=== PATIENT | male | born 1940 | race Caucasian/White ===

== ENCOUNTER 2017-08-04 13:30 | Emergency (ER) | payer MEDICARE, BC ==
[2017-08-04] MEDS ORDERED: Metoprolol Succinate 25 MG Tab.ER PO ONE (13:54)
--- NOTE | 2017-08-04 13:55 | EDM.PDOC ---
ED HPI GENERAL MEDICAL PROBLEM - General Chief Complaint: Cardiovascular Problem Stated Complaint: BLOOD PRESSURE?? Time Seen by Provider: 08/04/17 13:49 Source of Information: Reports: Patient History Limitations: Reports: No Limitations - History of Present Illness INITIAL COMMENTS - FREE TEXT/NARRATIVE: PT STATES HE FEELS LIKE HEART IS RACING. RECENTLY DISCONTINUED METOPROLOL DUE TO HR IN 40'S. CONTINUES ON LISINOPRIL AND HCTZ. DENIES CP, SOB, N/V, OR FEVER Onset: Today Onset Date: 08/04/17 Duration: Hour(s): Location: Reports: Chest Quality: Reports: Other (PALPITATIONS) Severity: Mild Improves with: Reports: None Worsens with: Reports: None Associated Symptoms: Reports: No Other Symptoms - Related Data Allergies Allergy/AdvReac Type Severity Reaction Status Date / Time Penicillins Allergy Rash Verified 08/04/17 13:54 Home Meds: Home Meds Hydrochlorothiazide 25 mg PO DAILY 08/04/17 [History] Lisinopril [Lisinopril] 20 mg PO BID 08/04/17 [History] Omeprazole [Omeprazole] 20 mg PO DAILY 08/04/17 [History] Rosuvastatin [Crestor] 10 mg PO DAILY 08/04/17 [History] amLODIPine [Norvasc] 7.5 mg PO DAILY 08/04/17 [History] metFORMIN [Glucophage] 500 mg PO 1800 08/04/17 [History] ED ROS GENERAL - Review of Systems Review Of Systems: ROS reveals no pertinent complaints other than HPI. Constitutional: Reports: No Symptoms HEENT: Reports: No Symptoms Respiratory: Reports: No Symptoms Cardiovascular: Reports: Palpitations Endocrine: Reports: No Symptoms GI/Abdominal: Reports: No Symptoms : Reports: No Symptoms Musculoskeletal: Reports: No Symptoms Skin: Reports: No Symptoms Neurological: Reports: No Symptoms Psychiatric: Reports: No Symptoms Hematologic/Lymphatic: Reports: No Symptoms Immunologic: Reports: No Symptoms ED EXAM, GENERAL - Physical Exam Exam: See Below Exam Limited By: No Limitations General Appearance: Alert, WD/WN, No Apparent Distress Eye Exam: Bilateral Eye: Normal Inspection Nose: Normal Inspection, No Blood Throat/Mouth: Normal Inspection, Normal Oropharynx, No Airway Compromise Head: Atraumatic, Normocephalic Neck: Normal Inspection Respiratory/Chest: No Respiratory Distress, Lungs Clear, Normal Breath Sounds, No Accessory Muscle Use, Chest Non-Tender Cardiovascular: No Murmur, Extra Beats GI/Abdominal: Normal Bowel Sounds, Soft, Non-Tender, No Organomegaly, No Distention, No Abnormal Bruit, No Mass Back Exam: Normal Inspection. No: CVA Tenderness (L), CVA Tenderness (R) Extremities: Normal Inspection, No Pedal Edema Neurological: Alert, Oriented, CN II-XII Intact, Normal Cognition Psychiatric: Normal Affect, Normal Mood Skin Exam: Warm, Dry, Intact, Normal Color, No Rash Course - Vital Signs Last Recorded V/S: Last Vital Signs Temp 98.3 F 08/04/17 13:42 Pulse 98 08/04/17 13:42 Resp 20 08/04/17 13:42 BP 150/70 H 08/04/17 13:42 Pulse Ox 92 L 08/04/17 13:42 - Orders/Labs/Meds Orders: Active Orders 24 hr Category Date Time Status EKG Documentation Completion [RC] ASDIRECTED Care 08/04/17 13:49 Ordered EKG 12 Lead [EK] Routine Ther 08/04/17 13:49 Ordered - Re-Assessments/Exams Free Text/Narrative Re-Assessment/Exam: 08/04/17 14:59 PT AFEBRILE, NONTOXIC APPEARING, VSS, BP 130/70'S AND HR IN 80'S. DENIES CP, SOB. WILL HAVE PT RESTART METOPROLOL 25MG QD AND F/U AT CLINIC 08/04/17 15:00 Departure - Departure Time of Disposition: 15:01 Disposition: Home, Self-Care 01 Condition: Good Clinical Impression: Palpitations Hypertension Qualifiers: Hypertension type: unspecified Qualified Code(s): I10 - Essential (primary) hypertension Instructions: Hypertension, [id number] Referrals: Yoselin Saavedra MD [Primary Care Provider] - Additional Instructions: FOLLOW UP AT [facility] IN NEXT 1-2 DAYS. CONTINUE METOPROLOL 25 MG PER DAY. - My Orders Last 24 Hours: My Active Orders 08/04/17 13:49 EKG Documentation Completion [RC] ASDIRECTED EKG 12 Lead [EK] Routine - Assessment/Plan Last 24 Hours: My Active Orders 08/04/17 13:49 EKG Documentation Completion [RC] ASDIRECTED EKG 12 Lead [EK] Routine Assessment:: HTN Plan: F/U AT [facility]
[2017-08-04 14:44] LABS: CHLORIDE,CL 106 mmol/L (98-115); SODIUM,NA 142 mmol/L (136-145)
[2017-08-04 14:55] VITALS: BP 142/70
== END 2017-08-04 15:15 | disposition home or self-care (01) ==
LOC: KA.ED 13:30
DX: I10 Essential (primary) hypertension (principal); R00.2 Palpitations; Z88.0 Allergy status to penicillin; Z79.899 Other long term (current) drug therapy
CPT/HCPCS: 36415; 71020; 80053; 84484; 85025; 99285; A9270; 93005; 99284

== ENCOUNTER 2019-02-17 05:59 | Day surgery (SDC) | payer MEDICARE, BC ==
[2019-02-17] MEDS ORDERED: Sodium Chloride 0.9% 1,000 ML IV SCH (06:00)
[2019-02-17] MEDS ORDERED: Gatifloxacin 0.5% Ophth Soln 2.5 ML Bot EYERT SCH (06:00)
[2019-02-17] MEDS ORDERED: Sodium Chloride 0.9% 10 ML Syringe FLUSH PRN (06:00)
[2019-02-17] MEDS: Cyclopentolate 1% Opth Soln 2 ML Bottle EYERT SCH ×3 (06:17→06:40)
[2019-02-17] MEDS: Phenylephrine 10% Ophth Soln 5 ML Bot EYERT SCH ×3 (06:25→06:45)
[2019-02-17] MEDS ORDERED: Water For Irrigation,Sterile 1,500 ML Container IRR ONE (07:47)
[2019-02-17] MEDS ORDERED: Balanced Salt Solution Ophth Irrig 15 ML Bottle EYERT ONE (07:47)
[2019-02-17] MEDS ORDERED: Balanced Salt Solution Plus Ophth Irrig 500 ML Bottle IOCULAR ONE (07:48)
[2019-02-17] MEDS ORDERED: EPINEPHrine 1 MG/ML SDV ONE (07:48)
[2019-02-17] MEDS ORDERED: Carbachol 0.01% Intraocular 1.5 ML Vial EYERT ONE (07:48)
[2019-02-17] MEDS ORDERED: Lidocaine 2% with EPINEPHrine 1:100,000 20 ML MDV INJECT ONE (07:49)
[2019-02-17] MEDS ORDERED: Dexamethasone/Neomycin/Polymyxin B Ophth Oint 3.5 GM Tube EYERT ONE (07:49)
[2019-02-17] MEDS ORDERED: Hyaluronate Sodium 1% 0.85 ML Syringe IOCULAR ONE (07:50)
[2019-02-17] MEDS ORDERED: Tetracaine HCl/PF 0.5% 4 ML Bottle EYEBOTH ONE (07:50)
[2019-02-17] MEDS ORDERED: Lidocaine 1% 10 ML MDV INJECT ONE (07:50)
[2019-02-17 08:15] VITALS: BP 160/60
--- NOTE | 2019-02-17 14:20 | OR ---
DATE OF SURGERY: 02/17/2019 SURGEON: Gage Benitez MD PREOPERATIVE DIAGNOSIS: Cataract, right eye. POSTOPERATIVE DIAGNOSIS: Cataract, right eye. OPERATION PERFORMED: Phacoemulsification with posterior chamber lens insertion, right eye. HISTORY: The patient presents at this time with an increasing amount of difficulty seeing to use the right eye as he reads. The right eye has a vision of 20/50. The right lens has a 3+ nuclear sclerosis, a 2+ cortical change, a 2+ posterior subcapsular change, and 3+ vacuoles. This eye has a combined cataract and a cataract of aging. FINDINGS: The patient was taken to the operating room where appropriate anesthesia, sedation and monitoring were provided. A retrobulbar block was given on the right side. The eye was massaged and was found to be appropriately soft. The eye and eyelids were then prepped and draped in the usual sterile manner. A lid speculum was placed. A micro sharp blade was used to enter the anterior chamber inside the limbus superior-temporally. Xylocaine was irrigated into the eye at this site. Healon was irrigated into the eye through this site. Then using a 2.85 mm corneal blade an entry was made into the anterior chamber just inside the limbus temporally. Healon was again irrigated into the eye. Then using a cystitome, the anterior capsulorrhexis was created. The lens nucleus was hydrodissected using a 27 gauge cannula and balanced salt solution. The phacoemulsification unit was introduced through the temporal site and the Conrad spatula through the superior temporal site. In so doing, the lens nucleus was phacoemulsified. The cortical fragments of the lens were removed using the irrigation aspiration unit. The posterior capsule was polished. Healon was irrigated into the eye. The posterior chamber lens was inserted and rotated into position inside the capsular bag. The Healon was irrigated out of the eye. Miostat was irrigated into the eye and the pupil rounded nicely. A single interrupted 10-0 Nylon suture was placed through the temporal corneal incision site. Balanced salt solution was irrigated into the eye. The wound was tested and found to be tight. Maxitrol ointment was placed into the patient's right eye. The eyelids were closed and an eye patch and nunez shield were placed. The patient left the operating room in good condition. /[id number]/MODL
== END 2019-02-17 08:47 | disposition home or self-care (01) ==
LOC: KA.SDS 05:59
PROVIDERS: ATTEND Ophthalmology
DX: E11.36 Type 2 diabetes mellitus with diabetic cataract (principal); H25.811 Combined forms of age-related cataract, right eye; I10 Essential (primary) hypertension; E78.5 Hyperlipidemia, unspecified; K21.9 Gastro-esophageal reflux disease without esophagitis; Z79.84 Long term (current) use of oral hypoglycemic drugs; Z79.899 Other long term (current) drug therapy; Z88.0 Allergy status to penicillin
CPT/HCPCS: 00142; 82962; A9270-GY; C1780; J0171; J2001; J7030